=== PATIENT | male | born 1960 | race Caucasian/White ===

== ENCOUNTER 2017-02-02 16:27 | Emergency (ER) | payer OTHER ==
--- NOTE | 2017-02-02 17:06 | ER Document Report ---
ED Medical Screen (RME) - General Chief Complaint: Rectal Bleeding Stated Complaint: POSSIBLE BLOOD IN STOOL Time Seen by Provider: 02/02/17 17:05 Mode of Arrival: Ambulatory Information source: Patient TRAVEL OUTSIDE OF THE [place] IN LAST 30 DAYS: No - HPI Patient complains to provider of: constipation; blood in stool Onset: Other - pt states he has not had a BM in 3 days but when he tries, bright red blood only comes out - Related Data Allergies/Adverse Reactions: No Known Allergies Allergy (Verified 02/02/17 17:01) Home Medications: Current Home Medications No Home Medications 02/02/17 [History] Past Medical History - Social History Chew tobacco use (# tins/day): No Frequency of alcohol use: Social Drug Abuse: None Renal/ Medical History: Denies: Hx Peritoneal Dialysis - Immunizations Hx Diphtheria, Pertussis, Tetanus Vaccination: Yes Physical Exam - Vital signs Vitals: Temp Pulse Resp BP Pulse Ox 98.2 F 94 20 155/100 H 96 02/02/17 16:37 02/02/17 16:37 02/02/17 16:37 02/02/17 16:37 02/02/17 16:37 Course - Vital Signs Vital signs: Temp Pulse Resp BP Pulse Ox 98.2 F 94 20 155/100 H 96 02/02/17 16:37 02/02/17 16:37 02/02/17 16:37 02/02/17 16:37 02/02/17 16:37
[2017-02-02 17:35] LABS: ABSOLUTE BASOPHILS # (AUTO) 0.1 10^3/uL (0.0-0.2); ABSOLUTE EOSINOPHILS # (AUTO) 0.2 10^3/uL (0.0-0.6); ABSOLUTE LYMPHOCYTES (AUTO) 1.5 10^3/uL (0.5-4.7); ABSOLUTE MONOCYTES (AUTO) 0.8 10^3/uL (0.1-1.4); ABSOLUTE NEUT (AUTO) 7.2 10^3/uL (1.7-8.2); EOSINOPHILS % (AUTO) 1.7 % (0-6); HEMOGLOBIN 14.1 g/dL (13.5-17.0); HGB HCT DIFFERENCE -0.7; LYMPHOCYTES % (AUTO) 15.8 % (13-45); MEAN CORPUSCULAR HEMOGLOBIN 27.7 pg (27.0-33.4); MEAN CORPUSCULAR HGB CONC 32.8 g/dL (32.0-36.0); MEAN CORPUSCULAR VOLUME 84 fl (80-97); MONOCYTES % (AUTO) 7.9 % (3-13); RED CELL DISTRIBUTION WIDTH 14.8 % (11.5-14.0); SEGMENTED NEUTROPHILS % (AUTO) 73.6 % (42-78); WHITE BLOOD COUNT 9.8 10^3/uL (4.0-10.5)
[2017-02-02 17:48] LABS: ALANINE AMINOTRANSFERASE 23 U/L (21-72); ALBUMIN 4.6 g/dL (3.5-5.0); ALKALINE PHOSPHATASE 75 U/L (38-126); ANION GAP 12 (5-19); ASPARTATE AMINO TRANSFERASE 17 U/L (17-59); BILIRUBIN,DIRECT 0.4 mg/dL (0.0-0.4); BILIRUBIN,TOTAL 0.7 mg/dL (0.2-1.3); BLOOD UREA NITROGEN 14 mg/dL (7-20); CALCIUM 9.7 mg/dL (8.4-10.2); CARBON DIOXIDE 27 mmol/L (22-30); CHLORIDE 102 mmol/L (98-107); CREATININE RESULT 1.02 mg/dL (0.52-1.25); GLUCOSE 98 mg/dL (75-110); POTASSIUM 4.7 mmol/L (3.6-5.0); SODIUM 140.9 mmol/L (137-145)
--- NOTE | 2017-02-02 18:03 | ER Document Report ---
ED GI Bleed / Rectal Pain - General Chief Complaint: Rectal Bleeding Stated Complaint: POSSIBLE BLOOD IN STOOL Time Seen by Provider: 02/02/17 18:03 Mode of Arrival: Ambulatory Notes: The patient is a 56-year-old male who presents with 3 days of constipation and 2 episodes of a small amount of blood after straining. He is also having mild rectal pain when he tries to have a bowel movement. He eats a meat diet without vegetables and is not on any narcotics. He denies syncope, lightheadedness, blood thinner use, abdominal pain, urinary symptoms, chest pain or shortness of breath. TRAVEL OUTSIDE OF THE [place] IN LAST 30 DAYS: No - Related Data Allergies/Adverse Reactions: No Known Allergies Allergy (Verified 02/02/17 17:01) Home Medications: Current Home Medications No Home Medications 02/02/17 [History] Past Medical History - General Information source: Patient - Social History Smoking Status: Current Every Day Smoker Chew tobacco use (# tins/day): No Frequency of alcohol use: Social Drug Abuse: None Family History: Reviewed & Not Pertinent Renal/ Medical History: Denies: Hx Peritoneal Dialysis - Immunizations Hx Diphtheria, Pertussis, Tetanus Vaccination: Yes Review of Systems - Review of Systems Notes: REVIEW OF SYSTEMS: CONSTITUTIONAL: -fevers, -chills EENT: -eye pain, -difficulty swallowing, -nasal congestion CARDIOVASCULAR:-chest pain, -syncope. RESPIRATORY: -cough, -SOB GASTROINTESTINAL: -abdominal pain, -nausea, -vomiting, -diarrhea, +rectal bleeding, +constipation GENITOURINARY: -dysuria, -hematuria MUSCULOSKELETAL: -back pain, -neck pain SKIN: -rash or skin lesions. HEMATOLOGIC: -easy bruising or bleeding. LYMPHATIC: -swollen, enlarged glands. NEUROLOGICAL: -altered mental status or loss of consciousness, -headache, - neurologic symptoms PSYCHIATRIC: -anxiety, -depression. ALL OTHER SYSTEMS REVIEWED AND NEGATIVE. Physical Exam - Vital signs Vitals: Temp Pulse Resp BP Pulse Ox 98.2 F 94 20 155/100 H 96 02/02/17 16:37 02/02/17 16:37 02/02/17 16:37 02/02/17 16:37 02/02/17 16:37 - Notes Notes: PHYSICAL EXAMINATION: GENERAL: Well-appearing, well-nourished and in no acute distress. HEAD: Atraumatic, normocephalic. EYES: Pupils equal round and reactive to light, extraocular movements intact, sclera anicteric, conjunctiva are normal. ENT: nares patent, oropharynx clear without exudates. Moist mucous membranes. NECK: Normal range of motion, supple without lymphadenopathy LUNGS: Breath sounds clear to auscultation bilaterally and equal. No wheezes rales or rhonchi. HEART: Regular rate and rhythm without murmurs ABDOMEN: Soft, nontender, normoactive bowel sounds. No guarding, no rebound. No masses appreciated. RECTAL: Non-thrombosed, non-bleeding external hemorrhoid at 8 o'clock. Brown stool. EXTREMITIES: Normal range of motion, no pitting or edema. No cyanosis. NEUROLOGICAL: Cranial nerves grossly intact. Normal speech, normal gait. Normal sensory and motor exams. PSYCH: Normal mood, normal affect. SKIN: Warm, Dry, normal turgor, no rashes or lesions noted. Course - Re-evaluation Re-evalutation: 02/02/17 18:50 Pt appears very well. He has evidence of an external hemorrhoid that is nonthrombosed and not actively be bleeding. His hemoglobin is 14 and BUN/creatinine are normal. His Glascow-Blanchfort Bleeding Score is 0. A GBS of 0 is a Low Risk GI bleed, and is highly sensitive (99.6% in a 2007 retrospective study) for predicting which patients did not require any medical intervention: blood transfusion, endoscopy, or surgery. This was confirmed in a 2009 Lancet study where patients with a score of 0 were actually discharged and had no GI bleeding mortality at 6 month followup. Instructed him to begin MiraLAX 3 times a day and add Senokot to help out with his constipation. He has absolutely no abdominal tenderness. Also instructed him that he must follow -up with the [place] clinic to obtain his colonoscopy. Given strict return precautions and he understands. - Vital Signs Vital signs: Temp Pulse Resp BP Pulse Ox 98.2 F 94 20 155/100 H 96 02/02/17 16:37 02/02/17 16:37 02/02/17 16:37 02/02/17 16:37 02/02/17 16:37 - Laboratory Result Diagrams: 02/02/17 17:15 02/02/17 17:15 Laboratory results interpreted by me: 02/02/17 17:15 RDW 14.8 H Discharge - Discharge Clinical Impression: Rectal bleed Constipation Qualifiers: Constipation type: unspecified constipation type Qualified Code(s): K59.00 - Constipation, unspecified Hemorrhoid Qualifiers: Hemorrhoid type: unspecified Qualified Code(s): K64.9 - Unspecified hemorrhoids Condition: Stable Disposition: HOME, SELF-CARE Additional Instructions: Add MiraLAX 3 times a day and Senokot to help with your constipation. Eat a high-fiber diet. Return to the ER if you have worsening bleeding or any other concerns. Follow-up with the [place] clinic and GI doctor for further evaluation, including a colonoscopy. ABDOMINAL PAIN: There are many causes of abdominal pain. Pain can mean a serious problem requiring surgery (such as appendicitis). It can also be an innocent problem that goes away on its own (such as a viral infection). Often, time must pass to determine the cause of pain. The physician does not feel that hospitalization is necessary, at present. Things may change within the next 24 hours. Call the doctor or come back for re- examination if any problems occur, such as: (1) Pain that becomes more severe, steady, or becomes concentrated in one specific area. Also, pain that is more severe with movement or coughing. (2) Vomiting that persists or becomes more frequent. (3) Blood in the vomitus, urine, or bowel movements. Blood in the stool may have a tarry or black appearance. (4) Shaking chills or fever greater than 100 degrees F. (5) The abdomen becomes more distended or swollen. (6) Bowel movements cease. (7) Failure to improve as expected. NORMAL EXAM AND WORKUP: At this time, your examination and workup show no significant abnormality. No significant abnormal physical findings are noted. All laboratory, EKG, and imaging (x-ray, CT scans, ultrasound) studies that were ordered show no significant abnormality. Although your examination and all studies that were ordered showed no significant abnormal finding, there are no examinations and no studies that are 100% accurate. There is always the possibility that some abnormality could exist and not be detected with physical examination or within the limits and capabilities of laboratory and other studies. You should return or follow up as you were instructed on your visit today for further evaluation if your symptoms do not resolve. CONSTIPATION: Constipation is a common problem. It is especially likely as you get older. Constipation is a common cause of abdominal pain, but sometimes causes no symptoms at all. Causes of constipation include certain medications, dehydration, diets, inactivity, and low-fiber intake. Rarely, it can be a symptom of underlying disease. The physician has evaluated you for this. Avoid constipation by eating a diet high in fiber, fruits, and vegetables. Drink plenty of liquids. Get regular exercise. If possible, avoid constipating medicines like narcotic pain medication. Some vitamin tablets can cause constipation. Stool softeners may be needed for difficult cases. An excellent stool softener is Konsyl which is available at [employer], and [employer]. Just add a teaspoon to a glass of pineapple or orange juice daily or twice a day if needed. Laxatives are useful for occasional constipation. You should use them only when necessary. Too-frequent use can make your bowels dependent on them. Some over the counter laxatives available without prescription are: Milk of Magnesia, 1-2 tablespoons twice a day Dulcolax, 5 mg pill or 10 mg suppository. Citrate of Magnesia, 4-5 ounces a day for a day or two For acute constipation, Fleet's Enemas and Dulcolax suppositories are helpful. Chronic, long term care social worker use of laxatives or enemas is not a good idea. Your bowel may become dependant on them. You do not need to have a bowel movement every day. Many people do fine with a bowel movement every three or four days. You should call your doctor or return for re-evaluation if you pass blood in the stool, or if you develop fever or increasing abdominal pain. BULK LAXATIVES: Bulk laxatives make the stool softer and bulkier. They're useful for preventing constipation. You can choose between psyllium, methylcellulose, and polycarbophil. They are available without a prescription. Psyllium brand names include Konsyl, Metamucil, Perdiem, Effer-Syllium and Hydrocil. It's available as powder, flavored drink powder, or chewable. The usual dose of psyllium powder is one heaping teaspoon in water each morning, increasing to twice a day if needed. Stoddard juice can disguise the slightly grainy texture. Methylcellulose is marketed as Citrucel and other brands. The average dose is two grams in a cup of water one to three times a day. Polycarbophil is marketed as Fiber-Con. Take two tablets with a cup of water one to three times a day. LAXATIVE: A laxative agent has been prescribed for your condition. This should result in passage of stool within 12 hours. Some mild intestinal cramping is common as the hard stool begins to move. You may have loose or runny stools for a short time. Contact your doctor if there is severe cramping, vomiting, or passage of blood. Return for further care if this medicine fails to improve your condition. FOLLOW-UP CARE: If you have been referred to a physician for follow-up care, call the physician s office for an appointment as you were instructed or within the next two days. If you experience worsening or a significant change in your symptoms, notify the physician immediately or return to the Emergency Department at any time for re-evaluation. Hemorrhoids You have hemorrhoids. These are formed by enlargement of veins around the anus. The cause is increased pressure in the veins, from or straining at bowel movements. Hemorrhoids often cause itching and bleeding with bowel movements. When a hemorrhoid becomes clotted, severe pain and swelling result. Soothing creams and suppositories are often prescribed. Warm sitz-baths may also decrease pain, swelling, and itching. Eat a high-fiber diet. Stool softeners such as Metamucil will help. Keep the area very clean. Medicated cleansing pads (such as Tucks) are useful after bowel movements. A hose-mounted shower unit (like a shower massager at low water pressure) can be used to clean around tender hemorrhoid tags. You should call the doctor or return if you develop fever, increasing pain , or an enlarging mass around the anus, or if you simply fail to improve with treatment. Referrals: IVA FORD MD [ACTIVE STAFF] - Follow up as needed
--- NOTE | 2017-02-02 18:46 | RADIOLOGY REPORT (SQ) ---
EXAM DESCRIPTION: ACUTE ABDOMEN SERIES COMPLETED DATE/TIME: 02/02/2017 5:42 pm REASON FOR STUDY: constipation COMPARISON: None. NUMBER OF VIEWS: Three views. TECHNIQUE: Frontal chest, supine abdomen and upright/decubitus abdomen radiographic images acquired. LIMITATIONS: None. FINDINGS: CHEST: Lungs clear of infiltrates. FREE AIR: None. No abnormal gas collections. BOWEL GAS PATTERN: Nonobstructive pattern. No dilated loops or air fluid levels. Normal physiologic stool burden. CALCIFICATIONS: No suspicious calcifications. HARDWARE: None in the abdomen. SOFT TISSUES: No gross mass or suggestion of organomegaly. BONES: No acute fracture. No worrisome bone lesions. OTHER: No other significant finding. IMPRESSION: NO RADIOGRAPHIC EVIDENCE FOR ACUTE ABDOMINAL DISEASE. TECHNICAL DOCUMENTATION: JOB ID: [id number] [email or web address]- All Rights Reserved
[2017-02-02 19:38] VITALS: BP 146/95
== END 2017-02-02 19:26 | disposition home or self-care (01) ==
LOC: ER 16:27
DX: K62.5 Hemorrhage of anus and rectum (principal); K59.00 Constipation, unspecified; K64.9 Unspecified hemorrhoids; F17.200 Nicotine dependence, unspecified, uncomplicated
CPT/HCPCS: 36415; 74022; 80053; 85025; 99283